=== PATIENT | female | born 1995 | race Caucasian/White ===

== ENCOUNTER 2016-06-22 07:33 | Emergency (ER) | payer OTHER ==
[~2016-06-22] VITALS: Ht 154.9 cm; Wt 74.5 kg
[~2016-06-22 07:33] MED LIST: PREN1TAB79 PO
[2016-06-22 07:43] VITALS: Ht 154.9 cm; Wt 74.5 kg
[2016-06-22 08:45] LABS: BASOPHILS % 0.5 % (0.0-2.0); EOSINOPHILS # 0.1 10^3/ul (0.0-0.5); EOSINOPHILS % 0.8 % (0.0-7.0); HEMATOCRIT 37.3 % (37.0-47.0); HEMOGLOBIN 12.5 g/dl (12.0-16.0); LYMPHOCYTES # 2.3 10^3/ul (0.8-2.9); LYMPHOCYTES % 24.5 % (18.0-55.0); MEAN CORPUSCULAR HEMOGLOBIN 29.4 pg (29.0-33.0); MEAN CORPUSCULAR HGB CONC 33.6 g/dl (32.0-37.0); MEAN CORPUSCULAR VOLUME 87.6 fl (72.0-104.0); MEAN PLATELET VOLUME 8.4 fl (7.4-10.4); MONOCYTE # 0.3 10^3/ul (0.3-0.9); MONOCYTES % 3.7 % (0.0-13.0); NEUTROPHIL # 6.6 10^3/ul (1.6-7.5); NEUTROPHILS % 70.5 % (30.0-74.0); PLATELET COUNT 259 10^3/UL (140-440); RED BLOOD COUNT 4.26 10^6/ul (4.20-5.40); RED CELL DISTRIBUTION WIDTH 13.4 % (11.5-14.5); UNCORRECTED WBC 9.3 10^3/ul (4.8-10.8); WHITE BLOOD COUNT 9.3 10^3/ul (4.8-10.8)
[2016-06-22 08:55] LABS: CONDITION 1
[2016-06-22 08:56] LABS: ALBUMIN 3.9 g/dl (3.3-4.9)
[2016-06-22 08:57] LABS: POTASSIUM 4.4 mmol/L (3.5-5.1)
[2016-06-22 08:59] LABS: ALBUMIN/GLOBULIN RATIO 1.08; CREATININE 0.57 mg/dl (0.44-1.00); TOTAL PROTEIN 7.5 g/dl (6.1-8.1)
[2016-06-22 09:00] LABS: CALCIUM 8.9 mg/dl (8.4-10.2)
[2016-06-22 09:01] LABS: ADD UMIC YES; URINE BILIRUBIN (Dip) NEGATIVE (NEGATIVE); URINE BLOOD (Dip) 3+ (NEGATIVE); URINE COLOR LT. YELLOW (YELLOW); URINE GLUCOSE (Dip) NEGATIVE (NEGATIVE); URINE KETONES (Dip) NEGATIVE (NEGATIVE); URINE LEUKOCYTE ESTERASE (Dip) NEGATIVE (NEGATIVE); URINE NITRITE (Dip) NEGATIVE (NEGATIVE); URINE TOTAL PROTEIN (Dip) TRACE (NEGATIVE); URINE UROBILINOGEN (Dip) 0.2 E.U./dL (0.1-1.0)
--- NOTE | 2016-06-22 09:16 | RADRPT ---
PROCEDURE: US Pelvis. CLINICAL INDICATION: Pelvic pain and vaginal bleeding. Unknown LMP. TECHNIQUE: Multiple transabdominal and transvaginal sonographic images of the pelvis were obtained . COMPARISON: None. FINDINGS: The uterus is retroflexed in position and measures 6.2 x 3.2 x 3.7 cm (38 cc). The endometrial comp byron is homogeneous in echogenicity and measures 9-10 mm in thickness. Trace fluid is seen within the endometrial canal. There is no evidence of intrauterine . The cervix is normal. There is no free pelvic fluid. The right and left ovaries are symmetric in size with Doppler flow. The right ovary measures 3.8 x 2.2 x 2.1 cm (8.8 cc). The left ovary measures 3.4 x 2.0 x 2.0 cm (7.2 cc). IMPRESSION: Trace fluid within the endometrial cavity. Otherwise, unremarkable pelvic ultrasound. No evidence of intrauterine or adnexal mass. RPTAT: HLST .Wanda Norwood MD, Date Time Electronically viewed and signed by .Wanda Norwood MD, MD on 06/22/2016 09:16 .T/
[2016-06-22] MEDS ORDERED: NAPR-260 PO (10:00)
[2016-06-22 10:02] LABS: SQUAMOUS EPITHELIAL CELL,UR FEW
--- NOTE | 2016-06-22 12:24 | ERD ---
DATE OF SERVICE: 06/22/2016 HISTORY OF PRESENT ILLNESS: The patient is a 21-year-old female coming in complaining of vaginal bl eeding. The patient had an natural vaginal delivery on 01/17/2016. She says she blood for about 2 weeks. It stopped; however, for the last 2 months she has had some vaginal bleeding. She states th at she has had mild clotting. She goes through about 3 to 4 pads a day. She has some generalized p elvic discomfort, but no severe pain. G2, P1, A1. She was seen by Dr. oLwery. Her last visit was 2 months ago. She is on control pills with no alleviation of her symptoms. PAST MEDICAL HISTORY: Denies any other medical problems. HOSPITALIZATIONS: Denies. SURGICAL HISTORY: Denies. SOCIAL HISTORY: Denies. REVIEW OF SYSTEMS: A 12-point review of systems was done. Refer to HPI for positives, all other sy stems negative. PHYSICAL EXAMINATION VITAL SIGNS: Temperature is 98.5, pulse is 99, blood pressure is 147/98, respiratory 18, O2 saturat ion 99% on room air. Pain intensity 9/10. GENERAL: The patient is well-appearing, well-nourished, no acute distress. HEART: Regular rate and rhythm. No murmurs, clicks, rubs or gallops. No S3 or S4. CHEST: Clear to auscultation bilaterally. There are no rales, wheezes or rhonchi. HEENT: Atraumatic. Conjunctivae are pink. Pupils equal, round, and reactive to light. There is no s cleral icterus. Tympanic membranes clear bilaterally. Oropharynx clear. No nystagmus or photophobia . ABDOMEN: Soft, nontender and nondistended. Good bowel sounds. No rebound or guarding. No gross felice tonitis. No gross organomegaly or masses. No Lr sign or McBurney point tenderness. SKIN: There is no apparent rash or petechia. The skin is warm and dry. BACK: No midline or flank tenderness. EMERGENCY ROOM COURSE: The patient had blood work done in the ER. CBC is within normal limits. He moglobin is stable at 12.5. CMP is within normal limits. Patient's urine showed 3+ hemoglobin, oth erwise within normal limits. The patient had a pelvic ultrasound which showed trace fluid within th e endometrial cavity. Otherwise unremarkable pelvic ultrasound, no evidence of intrauterine pregnan cy or adnexal mass. DIAGNOSIS: Menorrhagia. MEDICAL DECISION MAKING: I recommend patient to follow up with Dr. Lowery. She is not anemic and h er vitals are stable. There is no abnormality seen on pelvic ultrasound, and exam is not concerning . I recommend she have outpatient management to control vaginal bleeding after delivery. DISCHARGE: The patient is discharged stable. Patient given prescription for naproxen and told to f ollow up with primary care within 1 to 2 days for reevaluation. The patient was told if symptoms pr ogress or worsen to return to the ER. All other questions answered at time of discharge. Discharge summary given at the time of departure. Patient understood and complied with plan. Dictated By: EULALIA WOODS/NTS Conf#: [id number] DID#: [id number]
== END 2016-06-22 10:05 | disposition home or self-care (01) ==
LOC: FTE 07:33
DX: N92.0 Excessive and frequent menstruation with regular cycle (principal); R10.2 Pelvic and perineal pain
CPT/HCPCS: 76830; 76856; 80053; 81001; 85025; Z7502; 81003

== ENCOUNTER 2017-10-04 01:50 | Outpatient (CLI) | END 2017-10-04 04:14 | disposition home or self-care (01) ==

== ENCOUNTER 2017-12-07 11:01 | Outpatient (CLI) | END 2017-12-07 15:11 | disposition home or self-care (01) ==

== ENCOUNTER 2017-12-10 06:27 | Outpatient (CLI) | END 2017-12-10 08:00 | disposition home or self-care (01) ==

== ENCOUNTER 2017-12-29 01:05 | Inpatient (IN) | END 2017-12-31 15:24 | disposition home or self-care (01) | DRG 775 ==